=== PATIENT | female | born 1945 | race Caucasian/White ===

== ENCOUNTER → 2018-09-28 14:10 | Outpatient (CLI) | payer MEDICARE, SELFPAY ==
[2018-09-28 16:17] LABS: Alanine Aminotransferase 70 IU/L (9-52); Albumin 4.6 g/dL (3.5-5.0); Albumin Globulin Ratio 1.7 (1.0-2.8); Alkaline Phosphatase 121 U/L (38-126); Aspartate Aminotransferase 65 IU/L (14-36); BUN Creatinine Ratio 15.6 (6-22); Blood Urea Nitrogen 14 mg/dL (7-17); Calcium 9.7 mg/dL (8.4-10.2); Carbon Dioxide 29 mmol/L (22-32); Chloride 105 mmol/L (98-107); Cholesterol 172 mg/dL (140-199); Estimated Glomerular Filt Rate > 60.0 mL/min (>60); Globulin 2.7 g/dL (1.7-4.1); Glucose 104 mg/dL (80-110); HDL Cholesterol 51 mg/dL (40-60); HEMOLYSIS < 15 (0-50); LDL Cholesterol Calculated 89 mg/dL (<100); Potassium 4.6 mmol/L (3.4-5.1); Sodium 144 mmol/L (137-145); Total Protein 7.3 g/dL (6.3-8.2); Triglycerides 161 mg/dL (35-150)
== END ==
PROVIDERS: PCP Physician Assistant; Visit Provider Physician Assistant
DX: E78.2 Mixed hyperlipidemia (principal); I10 Essential (primary) hypertension; Z51.81 Encounter for therapeutic drug level monitoring
CPT/HCPCS: 36415; 80053; 80061

== ENCOUNTER → 2018-10-02 15:10 | Outpatient (CLI) | payer MEDICARE, SELFPAY | PROVIDERS: Family Provider Physician Assistant; PCP Physician Assistant; Visit Provider Physician Assistant | DX: N20.0 Calculus of kidney (principal) | CPT/HCPCS: 82370 ==

== ENCOUNTER → 2018-10-26 14:16 | Outpatient (CLI) | payer MEDICARE, SELFPAY ==
--- NOTE | 2018-10-26 14:19 | DI.US.S_ITS ---
PROCEDURE: US ABDOMEN COMPLETE INDICATIONS: ELEVATED LFTS, HX KIDNEY STONES, INCLUDE BLADDER POST VOID TECHNIQUE: Real-time scanning was performed of the abdominal and retroperitoneal organs, with image documentation. COMPARISON: [facility], [place], ABDOMEN COMPLETE, 11/09/2016, 10:09. [facility], [place], ABDOMEN COMPLETE, 02/26/2013, 13:02. FINDINGS: Liver: Liver is normal in size and homogeneous in echotexture, diffusely hyperechoic consistent with fatty infiltration. Adjacent to the gallbladder fossa is an area of slightly reduced fatty infiltration, measuring approximately 1.3 x 1.0 x 2.0 cm consistent with focal sparing from otherwise diffuse fatty infiltration. Several additional adjacent areas near the fissure for the falciform ligament show similar pattern, geographic, also consistent with focal sparing from otherwise diffuse fatty infiltration. Gallbladder: The gallbladder appears normal Biliary ducts: Poorly seen due to bowel gas. Pancreas: Visualized portions of the pancreas are sonographically normal. Portions of the pancreas are poorly seen due to bowel gas. No pancreatic ductal calcification or distention is found. Spleen: Spleen is normal in size and homogeneous in echotexture. Kidneys: Kidneys are normal in size and echotexture. Right kidney measures 10.7 cm long; left kidney measures 11.1 cm long. No hydronephrosis or nephrolithiasis. No solid masses. An 8mm left renal cortical cyst appears present. The renal cortex is mildly thinned measuring 1 cm on the right and 9 mm on the left. Aorta: Visualized aorta is normal in caliber at less than 3 cm. Iliacs: Proximal common iliac arteries are normal in caliber at less than 2.5 cm. IVC: Intrahepatic inferior vena cava is patent. Miscellaneous: No free abdominal fluid. 45 cc prevoid bladder volume, 5 cc post void residual. IMPRESSION: No acute disease found. Prominent fatty infiltration throughout the liver. Several scattered areas of focal sparing from otherwise diffuse fatty infiltration are present adjacent to the gallbladder fossa and the fissure for the falciform ligament. Currently no hydronephrosis or nephrolithiasis is found. A definite source of current abdominal pain is not seen. Bladder evaluation shows prevoid bladder volume of 45 cc and post void residual of only 5 cc. Dictated by: Kwasi Alonso M.D. on 10/26/2018 at 16:29 Approved by: Kwasi Alonso M.D. on 10/26/2018 at 16:34
[2018-10-26 15:09] LABS: Free T3, Triiodothyronine Free 3.54 pg/mL (2.77-5.27); Free T4, Direct Thyroxine 0.97 ng/dL (0.78-2.19)
[2018-10-26 15:22] LABS: Thyroid Stimulating Hormone 1.74 uIU/mL (0.47-4.68)
== END ==
PROVIDERS: PCP Physician Assistant; Visit Provider Physician Assistant
DX: R74.8 Abnormal levels of other serum enzymes (principal); R10.9 Unspecified abdominal pain; K76.0 Fatty (change of) liver, not elsewhere classified; E03.9 Hypothyroidism, unspecified; Z12.11 Encounter for screening for malignant neoplasm of colon; Z87.442 Personal history of urinary calculi
CPT/HCPCS: 36415; 76700; 82274; 84439; 84443; 84481

== ENCOUNTER → 2019-09-17 13:55 | Outpatient (CLI) | payer MEDICARE, SELFPAY ==
[2019-09-17 15:36] LABS: Alanine Aminotransferase 54 IU/L (<35); Albumin 4.7 g/dL (3.5-5.0); Albumin Globulin Ratio 1.8 (1.0-2.8); Alkaline Phosphatase 103 U/L (38-126); Aspartate Aminotransferase 47 IU/L (14-36); BUN Creatinine Ratio 17.8 (6-22); Blood Urea Nitrogen 16 mg/dL (7-17); Calcium 9.7 mg/dL (8.4-10.2); Carbon Dioxide 27 mmol/L (22-32); Chloride 104 mmol/L (98-107); Cholesterol 169 mg/dL (140-199); Estimated Glomerular Filt Rate > 60.0 mL/min (>60); Globulin 2.6 g/dL (1.7-4.1); Glucose 114 mg/dL (80-110); HDL Cholesterol 42 mg/dL (40-60); HEMOLYSIS < 15 (0-50); LDL Cholesterol Calculated 97 mg/dL (<100); Potassium 4.2 mmol/L (3.4-5.1); Sodium 141 mmol/L (137-145); Total Protein 7.3 g/dL (6.3-8.2); Triglycerides 148 mg/dL (35-150)
[2019-09-17 15:44] LABS: Creatinine Urine Random 231.5 mg/dL
[2019-09-17 15:48] LABS: Microalbumin Urine Random 1.4 mg/dL (0-1.6)
[2019-09-17 16:04] LABS: HEMOLYSIS < 15 (0-50); Iron 129 ug/dL (37-170)
[2019-09-17 16:15] LABS: Percent Iron Saturation 34 % (15-50); Total Iron Binding Capacity 383 ug/dL (265-497); Transferrin 321 mg/dL (206-381)
[2019-09-17 16:38] LABS: Thyroid Stimulating Hormone 6.66 uIU/mL (0.47-4.68)
== END ==
PROVIDERS: PCP Physician Assistant; Visit Provider Physician Assistant
DX: E03.9 Hypothyroidism, unspecified (principal); E78.2 Mixed hyperlipidemia; I10 Essential (primary) hypertension; E83.110 Hereditary hemochromatosis
CPT/HCPCS: 36415; 80053; 80061; 82043; 82570; 83540; 83550; 84443

== ENCOUNTER → 2019-12-10 15:42 | Outpatient (CLI) | payer MEDICARE, SELFPAY ==
[2019-12-10 18:17] LABS: HEMOLYSIS < 15 (0-50); Iron 139 ug/dL (37-170)
[2019-12-10 18:27] LABS: Percent Iron Saturation 36 % (15-50); Total Iron Binding Capacity 381 ug/dL (265-497); Transferrin 314 mg/dL (206-381)
[2019-12-10 18:47] LABS: Thyroid Stimulating Hormone 0.41 uIU/mL (0.47-4.68)
== END ==
PROVIDERS: PCP Nurse Practitioner Family; Referring Provider Physician Assistant; Visit Provider Physician Assistant
DX: E03.9 Hypothyroidism, unspecified (principal); E83.110 Hereditary hemochromatosis; R79.89 Other specified abnormal findings of blood chemistry
CPT/HCPCS: 36415; 83540; 83550; 84443

== ENCOUNTER → 2020-03-30 14:18 | Outpatient (CLI) | payer MEDICARE, SELFPAY ==
[2020-03-30 15:58] LABS: Thyroid Stimulating Hormone 3.33 uIU/mL (0.47-4.68)
== END ==
PROVIDERS: PCP Nurse Practitioner Family; Referring Provider Nurse Practitioner Family; Visit Provider Nurse Practitioner Family
DX: E03.9 Hypothyroidism, unspecified (principal)
CPT/HCPCS: 36415; 84443